=== PATIENT | male | born 1955 | race Caucasian/White ===

== ENCOUNTER 2020-03-23 09:04 | Inpatient (IN) ==
[~2020-03-23 09:04] MED LIST: Acetaminophen IV 1,000 MG/100 ML INFUS..BTL IVPB ONE; Famotidine 20 MG/2 ML VIAL IVP ONE; ceFAZolin 1,000 MG, Sodium Chloride IRRigation 1,000 ML IR ONE
[2020-03-23] MEDS ORDERED: Lidocaine -MPF 4% 5 ML AMPUL ONE (09:13)
[2020-03-23] MEDS ORDERED: *HR* Propofol 200 MG/20 ML VIAL IVP ONE (09:13)
[2020-03-23] MEDS ORDERED: Lidocaine -MPF 2% 2 ML VIAL ONE ×2 (09:14→13:40)
[2020-03-23] MEDS ORDERED: Dexamethasone 4 MG/ML VIAL ONE (09:14)
[2020-03-23] MEDS ORDERED: *HR* Succinylcholine 200 MG/10 ML VIAL IVP ONE (09:14)
[2020-03-23] MEDS ORDERED: *HR* Rocuronium Bromide 50 MG/5 ML VIAL ONE ×2 (09:14→13:44)
[2020-03-23] MEDS ORDERED: Ondansetron 4 MG/2 ML VIAL ONE ×2 (09:14→14:30)
[2020-03-23] MEDS ORDERED: *HR* FentaNYL (PF) 100 MCG/2 ML VIAL ONE ×2 (09:14→12:10)
[2020-03-23] MEDS ORDERED: *HR* Phenylephrine 10 MG/ML VIAL ONE (09:19)
[2020-03-23] MEDS ORDERED: *HR* Labetalol 20 MG/4 ML SYRINGE IVP PRN ×2 (09:26→15:36)
[2020-03-23] MEDS ORDERED: Ondansetron 4 MG/2 ML VIAL IVP PRN ×2 (09:26→15:36)
[2020-03-23] MEDS ORDERED: *HR* HYDROmorphone PF 0.5 MG/0.5 ML SYRINGE IVP PRN (09:26)
[2020-03-23] MEDS ORDERED: CeFAZolin Syr 2,000MG/20 ML 2,000 MG/20 ML SYRINGE IVPB ONE (09:47)
[2020-03-23] MEDS ORDERED: Ringers Solution, Lactated 1,000 ML IVC SCH (10:00)
[2020-03-23] MEDS ORDERED: Nitroglycerin 0 MG/0 ML INFUS..BTL IVC ONE (10:14)
[2020-03-23] MEDS ORDERED: *HR* Vasopressin 20 UNIT/ML VIAL ONE (10:14)
[2020-03-23] MEDS ORDERED: Heparin 1,000 UNITS/500 mL 500 ML ONE ×2 (10:21→11:04)
[2020-03-23] MEDS ORDERED: *HR* Midazolam HCl 2 MG/2 ML VIAL ONE (11:10)
[2020-03-23] MEDS ORDERED: *HR* PHENYLEPHRINE 1,000 MCG/10 ML SYRINGE IVP ONE (11:58)
[2020-03-23] MEDS ORDERED: *HR* Heparin 5,000 UNIT/ML VIAL ONE ×2 (12:23→12:33)
[2020-03-23] MEDS ORDERED: Protamine Sulfate 50 MG/5 ML VIAL IVP ONE (13:18)
[2020-03-23] MEDS ORDERED: *HR* Promethazine 25 MG/ML VIAL ONE (14:34)
[2020-03-23] MEDS ORDERED: *HR* OxyCODONE Immed Rel 5 MG TABLET PO PRN (15:36)
[2020-03-23] MEDS ORDERED: Acetaminophen 325 MG TABLET PO PRN (15:36)
[2020-03-23] MEDS ORDERED: Naloxone 0.4 MG/ML INJ IVP PRN (15:36)
[2020-03-23] MEDS: CeFAZolin 2 GM/120 ML BAG IVPB SCH ×2 (16:59→23:01)
[2020-03-23] MEDS: *HR* HYDROcodone/Acet 5/325 mg TABLET PO PRN (19:27)
[2020-03-24] MEDS: *HR* HYDROcodone/Acet 5/325 mg TABLET PO PRN ×2 (02:56→12:59)
[2020-03-24 03:16] LABS: Basophils % 0.1 %; Eosinophils % 0.1 %; Hematocrit 40.2 % (37.5-50.1); Hemoglobin 13.3 g/dL (12.9-16.9); Immature Granulocytes % 0.4 % (0-4); Lymphocytes # 1.1 K/mcL (0.6-4.6); Lymphocytes % 9.8 %; Mean Corpuscular HGB Conc 33.1 g/dL (31.6-35.5); Mean Corpuscular Hemoglobin 31.2 pg (28.0-33.3); Mean Corpuscular Volume 94.4 fL (83.0-100.0); Mean Platelet Volume 11.2 fL (9.4-12.4); Monocytes # 0.9 K/mcL (0.0-1.3); Monocytes % 8.2 %; Platelet Count 147 K/mcL (140-400); Red Blood Count 4.26 M/mcL (4.19-5.50); Red Cell Distribution Width 12.8 % (11.5-14.5); Segmented Neutrophils % 81.4 %
[2020-03-24 03:31] LABS: BUN/Creatinine Ratio 19 (6-26); Blood Urea Nitrogen 15 mg/dL (8-23); Calcium 9.2 mg/dL (8.6-10.3); Carbon Dioxide 25 mEq/L (23-29); Chloride 103 mEq/L (98-107); Glucose 135 mg/dL (70-105); Osmolality,Calculated 287 (280-300); Potassium 4.3 mEq/L (3.5-5.1); Sodium 137 mEq/L (136-145); eGFR For African Americans > 60 (> 60); eGFR For Non-African Americans > 60 (> 60)
[2020-03-24] MEDS: CeFAZolin 2 GM/120 ML BAG IVPB SCH (07:25)
[2020-03-24 07:43] VITALS: BP 141/84
== END 2020-03-24 13:37 | disposition home or self-care (01) | DRG 39 ==
LOC: SAMDAY 09:04 → 2NNU 15:30
PROVIDERS: ADMIT Surgery Vascular Surgery; ATTEND Surgery Vascular Surgery

== ENCOUNTER 2020-04-27 10:22 | Inpatient (IN) ==
[2020-04-27] MEDS ORDERED: Ringers Solution, Lactated 1,000 ML IVC SCH (10:45)
[2020-04-27] MEDS ORDERED: CeFAZolin Syr 2,000MG/20 ML 2,000 MG/20 ML SYRINGE IVPB ONE (11:04)
[2020-04-27] MEDS ORDERED: ceFAZolin 1,000 MG, Sodium Chloride IRRigation 1,000 ML IR ONE (12:05)
[2020-04-27] MEDS ORDERED: *HR* Midazolam HCl 2 MG/2 ML VIAL ONE (12:22)
[2020-04-27] MEDS ORDERED: *HR* FentaNYL (PF) 100 MCG/2 ML VIAL ONE ×2 (12:22→14:33)
[2020-04-27] MEDS ORDERED: Heparin 1,000 UNITS/500 mL 500 ML ONE (12:22)
[2020-04-27] MEDS ORDERED: Lidocaine -MPF 2% 2 ML VIAL ONE ×3 (12:22→15:11)
[2020-04-27] MEDS ORDERED: *HR* Propofol 200 MG/20 ML VIAL IVP ONE (12:23)
[2020-04-27] MEDS ORDERED: Lidocaine HCL 4 ML Topical Solution (Laryng-O-Jet Kit Sterile Pak) TP ONE (12:23)
[2020-04-27] MEDS ORDERED: Ondansetron 4 MG/2 ML VIAL ONE (12:23)
[2020-04-27] MEDS ORDERED: Dexamethasone 4 MG/ML VIAL ONE (12:23)
[2020-04-27] MEDS ORDERED: *HR* Rocuronium Bromide 50 MG/5 ML VIAL ONE ×2 (12:23→15:56)
[2020-04-27] MEDS ORDERED: Heparin 1,000 UNITS/500 mL 1,000 ML ONE (14:31)
[2020-04-27] MEDS ORDERED: Protamine Sulfate 50 MG/5 ML VIAL IVP ONE (14:31)
[2020-04-27] MEDS ORDERED: *HR* Remifentanil 2 MG VIAL IVP ONE (14:38)
[2020-04-27] MEDS ORDERED: EPHEDrine 50 MG/ML VIAL ONE (15:09)
[2020-04-27] MEDS ORDERED: *HR* Heparin 5,000 UNIT/ML VIAL ONE ×2 (16:12→17:13)
[2020-04-27] MEDS ORDERED: *HR* Magnesium Sulfate 1 GM/2 ML VIAL ONE (17:14)
[2020-04-27] MEDS ORDERED: *HR* HYDROmorphone PF 0.5 MG/0.5 ML SYRINGE IVP PRN (18:15)
[2020-04-27] MEDS ORDERED: *HR* Meperidine 25 MG/ML SYRINGE IVP PRN (18:15)
[2020-04-27] MEDS ORDERED: Ondansetron 4 MG/2 ML VIAL IVP PRN ×2 (18:15→19:12)
[2020-04-27] MEDS ORDERED: *HR* Labetalol 20 MG/4 ML SYRINGE IVP PRN (19:12)
[2020-04-27] MEDS ORDERED: Nitroglycerin 0.4 MG TAB.SUBL SL PRN (19:12)
[2020-04-27] MEDS ORDERED: Naloxone 0.4 MG/ML INJ IVP PRN (19:12)
[2020-04-27] MEDS ORDERED: Acetaminophen 325 MG TABLET PO PRN (19:12)
[2020-04-27] MEDS: *HR* HYDROcodone/Acet 5/325 mg TABLET PO PRN (19:47)
[2020-04-27] MEDS: *HR* Metformin 500 MG TABLET PO SCH (21:15)
[2020-04-27] MEDS: Budesonide/Formoterol 80/4.5 1 PUFF INH IH SCH (21:49)
[2020-04-27] MEDS: CeFAZolin 2 GM/120 ML BAG IVPB SCH (23:31)
[2020-04-28] MEDS: *HR* HYDROcodone/Acet 5/325 mg TABLET PO PRN ×2 (02:31→11:46)
[2020-04-28 04:22] LABS: Basophils % 0.1 %; Hematocrit 36.9 % (37.5-50.1); Immature Granulocytes % 0.4 % (0-4); Lymphocytes # 0.6 K/mcL (0.6-4.6); Lymphocytes % 8.7 %; Mean Corpuscular HGB Conc 32.5 g/dL (31.6-35.5); Mean Corpuscular Hemoglobin 31.8 pg (28.0-33.3); Mean Corpuscular Volume 97.9 fL (83.0-100.0); Mean Platelet Volume 11.9 fL (9.4-12.4); Monocytes # 0.5 K/mcL (0.0-1.3); Monocytes % 6.6 %; Platelet Count 115 K/mcL (140-400); Red Blood Count 3.77 M/mcL (4.19-5.50); Red Cell Distribution Width 13.1 % (11.5-14.5); Segmented Neutrophils % 84.2 %; White Blood Count 7.2 K/mcL (4.3-11.1)
[2020-04-28 04:41] LABS: BUN/Creatinine Ratio 24 (6-26); Blood Urea Nitrogen 18 mg/dL (8-23); Calcium 8.4 mg/dL (8.6-10.3); Carbon Dioxide 23 mEq/L (23-29); Chloride 107 mEq/L (98-107); Glucose 207 mg/dL (70-105); Osmolality,Calculated 296 (280-300); Potassium 4.1 mEq/L (3.5-5.1); Sodium 139 mEq/L (136-145); eGFR For African Americans > 60 (> 60); eGFR For Non-African Americans > 60 (> 60)
[2020-04-28] MEDS: *HR* Metformin 500 MG TABLET PO SCH (08:07)
[2020-04-28] MEDS: CeFAZolin 2 GM/120 ML BAG IVPB SCH ×2 (08:26→15:05)
[2020-04-28] MEDS ORDERED: Lisinopril-HCTZ 20-12.5mg TABLET PO SCH (09:00)
[2020-04-28] MEDS ORDERED: amLODIPine 5 MG TABLET PO SCH (09:00)
[2020-04-28] MEDS ORDERED: Multivit/Ca/Min/Fe/FA 1 TAB TABLET PO SCH (09:00)
[2020-04-28] MEDS ORDERED: Cholecalciferol (D-3) 1,000 UNIT (25MCG) TABLET PO SCH (09:00)
[2020-04-28] MEDS ORDERED: Ascorbic Acid 500 MG TABLET PO SCH (09:00)
[2020-04-28] MEDS ORDERED: Aspirin 81 MG TAB.CHEW PO SCH (09:00)
[2020-04-28] MEDS ORDERED: Metoprolol XL (24 HR) Succ 25 MG TAB.ER.24H PO SCH (09:00)
[2020-04-28] MEDS ORDERED: Cyanocobalamin (B-12) 1,000 MCG TABLET PO SCH (09:00)
[2020-04-28] MEDS: Budesonide/Formoterol 80/4.5 1 PUFF INH IH SCH (10:24)
[2020-04-28 11:42] VITALS: BP 119/70
== END 2020-04-28 16:32 | disposition home or self-care (01) | DRG 39 ==
LOC: SAMDAY 10:22 → 2NNU 19:32
PROVIDERS: ADMIT Surgery Vascular Surgery; ATTEND Surgery Vascular Surgery